=== PATIENT | female | born 1945 | race Caucasian/White ===

== ENCOUNTER 2022-12-28 07:00 | Day surgery (SDC) | payer BC, OTHER ==
[~2022-12-28] VITALS: Ht 160 cm; Wt 76.7 kg
[2022-12-28] MEDS ORDERED: SIMETHICONE 40 MG/0.6 ML ML ONE (07:06)
[2022-12-28 07:51] VITALS: O2SAT 100
[2022-12-28] MEDS ORDERED: NS 1000 ML IV.SOLN IV ONE (08:09)
[2022-12-28] MEDS ORDERED: MIDAZOLAM HCL 2 MG/2 ML VIAL (VERSED) ONE (08:09)
[2022-12-28] MEDS ORDERED: METOCLOPRAMIDE HCL 10 MG/2 ML VIAL ONE (08:09)
[2022-12-28] MEDS ORDERED: fentaNYL CITRATE/PF 100 MCG/2 ML AMP ONE (08:09)
[2022-12-28] MEDS ORDERED: PROPOFOL 200MG/ 20ML VIAL (DIPRIVAN) IV ONE (08:09)
[2022-12-28] MEDS ORDERED: ONDANSETRON HCL 4 MG/2 ML VIAL IVP PRN (09:15)
[2022-12-28] MEDS ORDERED: NACL 0.9% 1,000 ML IV SCH (09:15)
[2022-12-28] MEDS ORDERED: MEPERIDINE HCL/PF 25 MG/ML DISP.SYRIN IVP PRN (09:15)
[2022-12-28] MEDS ORDERED: HYDROmorphone 1 MG/ML INJ. CARTRIDGE IVP PRN ×2 (09:15)
[2022-12-28 10:54] VITALS: BP_SYST 116; PULSE 92; RESP 16
== END 2022-12-28 12:30 | disposition home or self-care (01) ==
LOC: SDS 07:00 → SMU 07:01 → SDS 12:30
PROVIDERS: ATTEND Internal Medicine Gastroenterology
DX: Z12.11 Encounter for screening for malignant neoplasm of colon (principal); K57.30 Diverticulosis of large intestine without perforation or abscess without bleeding; K64.8 Other hemorrhoids; K31.7 Polyp of stomach and duodenum; R13.10 Dysphagia, unspecified; K29.50 Unspecified chronic gastritis without bleeding; K29.80 Duodenitis without bleeding; Z86.010 Personal history of colon polyps; I12.9 Hypertensive chronic kidney disease with stage 1 through stage 4 chronic kidney disease, or unspecified chronic kidney disease; N18.4 Chronic kidney disease, stage 4 (severe); K21.9 Gastro-esophageal reflux disease without esophagitis; E03.9 Hypothyroidism, unspecified; Z79.899 Other long term (current) drug therapy
CPT/HCPCS: 43251; 96365; 87081; 36415; 88305; 88312; 88313; 45378; 43239; J2765; J3465; J2704; J3010; J7030